=== PATIENT | male | born 1980 | race American Indian/Alaskan Native ===

== ENCOUNTER 2021-10-22 16:59 | Emergency (ER) | payer OTHER ==
[2021-10-22] MEDS ORDERED: KETOROLAC 10 MG TAB PO ONE (17:24)
[2021-10-22] MEDS ORDERED: CYCLOBENZAPRINE 10 MG TAB PO ONE (17:24)
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
[2021-10-23 00:10] VITALS: BP 134/64
== END 2021-10-23 00:09 | disposition home or self-care (01) ==
LOC: ED 16:59
DX: M54.2 Cervicalgia (principal); V89.2XXA Person injured in unspecified motor-vehicle accident, traffic, initial encounter; Y93.89 Activity, other specified; Y92.89 Other specified places as the place of occurrence of the external cause; Y99.8 Other external cause status
CPT/HCPCS: 72125; 99283